=== PATIENT | female | born 1980 | race Caucasian/White ===

== ENCOUNTER 2023-01-14 08:00 | Outpatient (CLI) | payer OTHER | END 2023-01-14 23:59 | disposition home or self-care (01) | LOC: LAB.S 08:00 | PROVIDERS: ATTEND Physician Assistant | DX: N39.0 Urinary tract infection, site not specified (principal) | CPT/HCPCS: 87086 ==

== ENCOUNTER 2023-05-22 07:48 | Outpatient (CLI) | payer OTHER ==
--- NOTE | 2023-05-23 09:51 | Mammography Report ---
BILATERAL DIGITAL DIAGNOSTIC MAMMOGRAM 3D/2D WITH AUGMENTATION: 05/22/2023 CLINICAL: Baseline exam. Bilateral skin changes. Bilateral axillary swelling by physician. No prior exams were available for comparison. Both breasts are heterogeneously dense, which may obscure small masses (category c / 51-75% glandular tissue). No significant masses, calcifications, or other findings are seen in either breast. IMPRESSION: INCOMPLETE: NEEDS ADDITIONAL IMAGING EVALUATION There is no abnormality seen in the left breast to correspond with the area of clinical concern at 12 :00, however, clinical correlation and clinical followup are recommended. Patient reports decreased symptoms today There is no abnormality seen in the axilla to correspond with the area of clinical concern. Ultrasoun d is recommended. Based on Tyrer-Cuzick model (a risk assessment model), the patient's lifetime risk is 23.5% and her 1 0 year risk is 3.1%. If a patient has an elevated risk, a more comprehensive evaluation should be con sidered and/or a referral to a genetic counselor. The [employer], [employer], and NCCN Guidelines advise the consideration of Breast MRI as an adjunct to screening mammog terrell in patients whose "Lifetime risk to develop breast cancer" is 20% or higher. This exam was interpreted at Station ID: [id number]. NOTE: For mammograms, a report in lay terms will be sent to the patient. Approximately 15% of breast malignancies will not be visualized mammographically. In the management of a palpable breast mass, a negative mammogram must not discourage biopsy of a clinically suspicious lesion. Electronically Signed By: Jose Enrique Apodaca M.D. lc/:05/22/2023 09:00:36 ACR BI-RADS Category 0: Incomplete 3340F PARENCHYMAL PATTERN: (D) - The breast(s) demonstrate(s) heterogeneously dense fibroglandular parenchy ma. BI-RADS CATEGORY: (0) - 0 Ultrasound [id number] Immediate follow-up LATERALITY: (B)
--- NOTE | 2023-05-23 09:51 | Ultrasound Report ---
LIMITED ULTRASOUND OF RIGHT BREAST AND AXILLA: 05/22/2023 CLINICAL: Bilateral Axilla swelling. Comparison is made to exam dated: 05/22/2023 mammogram - [facility]. Color flow ultrasound of the right breast axilla was performed. Feng scale images of the real-time e xamination were reviewed. There are benign appearing oval shaped axillary nodes in the right axilla. No significant abnormalities were seen sonographically in the right axilla. IMPRESSION: BENIGN There is no sonographic evidence of malignancy. Benign-appearing lymph nodes seen. Clinical evaluatio n recommended. This exam was interpreted at Station ID: [id number]. Electronically Signed By: Jose Enrique Apodaca M.D. lc/:05/22/2023 09:02:29 letter sent: No_Letter Ultrasound BI-RADS: 2 Benign BI-RADS CATEGORY: (2) - 2 Unspecified - other recall n/a LATERALITY: (B)
--- NOTE | 2023-05-23 09:51 | Ultrasound Report ---
LIMITED ULTRASOUND OF LEFT BREAST AND AXILLA: 05/22/2023 CLINICAL: Bilateral Axilla swelling. Comparison is made to exam dated: 05/22/2023 mammogram - [facility]. Color flow ultrasound of the left breast axilla was performed. Feng scale images of the real-time e xamination were reviewed. There are benign appearing oval shaped axillary nodes with a fatty hilum in the left axilla. No significant abnormalities were seen sonographically in the left axilla. IMPRESSION: BENIGN There is no sonographic evidence of malignancy. Clinical followup and evaluation recommended. Return to annual mammogram and a breast MRI screening schedule is recommended. given elevated lifetim e risk. This exam was interpreted at Station ID: [id number]. Electronically Signed By: Jose Enrique Apodaca M.D. lc/:05/22/2023 09:03:39 Ultrasound BI-RADS: 2 Benign BI-RADS CATEGORY: (2) - 2 Mammo and MR [id number] return to screening LATERALITY: (B)
== END 2023-05-22 07:49 | disposition home or self-care (01) ==
LOC: DI 07:48
PROVIDERS: ATTEND Nurse Practitioner Family
DX: N63.25 Unspecified lump in the left breast, overlapping quadrants (principal); R92.333 Mammographic heterogeneous density, bilateral breasts; R22.31 Localized swelling, mass and lump, right upper limb; R22.32 Localized swelling, mass and lump, left upper limb